=== PATIENT | male | born 2000 | race Caucasian/White ===

== ENCOUNTER 2023-08-17 09:09 | Emergency (ER) | payer OTHER, SELFPAY ==
--- NOTE | ~2023-08-17 | CT_ITS ---
EXAMINATION: CT HEAD WITHOUT CONTRAST CLINICAL INFORMATION: Right eye visual changes. COMPARISON: None available. TECHNIQUE: Contiguous axial imaging was performed from the skull base to vertex without intravenous administration of contrast. This CT examination was performed using dose optimization techniques as appropriate, variously including the following: *Automated exposure control *Adjustment of mA and/or kV according to patient size (this includes techniques or standardized protocols for targeted exams where dose is matched to indication/reason for exam; i.e. extremities or head) *Use of iterative reconstruction technique DLP: 680 mGy-cm FINDINGS: There is no acute intra-axial, extra-axial bleed, masses or midline shift. There is no acute infarction in evolution. There is no edema.. The lateral ventricles are symmetrical in size and configuration without enlargement. The locke to white matter differentiation is maintained normal. No abnormality seen in the posterior fossa. Bone windows reveal no calvarial abnormality. There is no scalp soft tissue abnormality. There is a large polyp or retention cyst left maxillary sinus. Otherwise rest of the paranasal sinuses and mastoid air cells are well-aerated. CT/CT head/brain wo IV con IMPRESSION: 1. No acute intracranial process seen. 2. Large polyp or retention cyst left maxillary sinus.
[2023-08-17 09:16] VITALS: BP 129/80; PULSE 66; RESP 19; TEMP 36.6; O2SAT 98; BMI 18.8
--- NOTE | 2023-08-17 09:43 | ED_ITS ---
HPI - Eye Problem General Chief complaint: Eye Problems Stated complaint: ? Retinal Detachment R Eye Time Seen by Provider: 08/17/23 09:22 Source: patient Mode of arrival: ambulatory Limitations: no limitations History of Present Illness HPI Narrative: This is a 22-year-old male without significant medical history presenting with atraumatic right-sided visual disturbance times a week. Patient reports this started last Wednesday after having a ?migraine ?, he reports he lost medial vision to his right eye and tells me he sees like a locke block in that region. He reports he gets migraines from time to time however has never had visual disturbances like this. At this time he tells me he does not have a headache, weakness, nausea, vomiting, chest pain, shortness of breath, fevers, chills, recent illness, neck pain, recent trauma to head or neck. Not on blood thinners NIH stroke scale 0 Related Data Allergies Allergy/AdvReac Type Severity Reaction Status Date / Time No Known Allergies Allergy Verified 08/17/23 09:15 Review of Systems 2 Review of Systems: Yes all other systems are reviewed and are negative [facility] Past Medical History Attestation statement: The following information was validated with the patient. Source: old records reviewed and nursing notes reviewed Social History Social History Advance Directives: No Physical Exam 2 Vital Signs: Vital Signs: Last Vital Signs Temp 98 F 08/17/23 09:16 Pulse 66 08/17/23 09:16 Resp 19 08/17/23 09:16 BP 129/80 08/17/23 09:16 Pulse Ox 98 08/17/23 09:16 O2 Del Method Room Air 08/17/23 09:16 BMI result Body Mass Index 18.8 vss Appearance: Alert.? Oriented X3.? No acute distress.? Head: Normocephalic, atraumatic, no step-offs or deformities Eyes: Pupils equal, round and reactive to light.? Extraocular movements intact and pain-free. - Bedside ultrasound of right eye: no vi sualized vitreous hemorrhage or retinal detachment. - visual martinez: loss of vision to the r ight eye nasal aspect. Normal L eye. Normal right temporal vision. - visual acuity: L: 20/13, R: 20/30 Neck: Normal inspection.? Neck supple.? CVS: Normal heart rate and rhythm.? Pulses normal.? Respiratory: No respiratory distress.? Breath sounds normal.? Abdomen: Soft and nontender.? Skin: Skin warm and dry.? Normal skin color.? Normal skin turgor.? Extremities: No lower extremity edema.? No calf ttp. 5/5 strength to bilateral upper and lower extremities Neuro: Oriented X 3.? No motor deficit.? No sensory deficit. CN 2-12 intact Course Course Course Narrative: Discussed this case w/ my attending Dr. Phillip who recommends just dry CT and no need for CTA head/ neck or MRI. Reevaluation(s) Reevaluation #1: A bedside I ultrasound was done normal cornea, ciliary body, lens, vitreous chamber, no signs of retinal detachment or vitreous hemorrhage. Image below. Time: 10:30 Reevaluation #2: Visual acuity: L 20/13 R 20/30 Ct unremarkable. Call out to Dr. Sauceda opthamology. Time: 11:25 Reevaluation #3: Visual martinez by confrontation again repeated and unchanged. Head CT unremarkable. I did discuss this case with Ophthalmology who will see patient tomorrow at 09:20 in the morning or 10:00. Patient agrees to this plan. Educated patient on diagnosis and treatment plan, answered all question, patient verbalizes understanding. At this time patient will be discharged home, advised to return with new or worsening symptoms. Educated on worrisome signs and symptoms and when to return. At this time I feel comfortable discharge home. Time: 11:45 Medical Decision Making Medical Decision Making MDM Narrative: 22-year-old male presents with visual disturbances to the right eye since Wednesday. Unchanged and not improving Physical exam significant for Pupils equal, round and reactive to light.? Extraocular movements intact and pain-free. - Bedside ultrasound of right eye: no visualized vitreous hemorrhage or retinal detachment. - visual martinez: loss of vision to the right eye nasal aspect. Normal L eye. Normal right temporal vision. History and physical exam concerning for ocular migraine causing unilateral nasal hemianopia. I do not suspect stroke, posterior stroke, intracranial hemorrhage. Unilateral nasal hemianopia which could result from 1/2 of the optic nerve of the eye being compromised although history and physical exam with very low suspicious of this plan- visual acuity, head CT Differential Diagnosis Differential Diagnoses: The differential diagnosis associated with the presentation includes History and physical exam concerning for ocular migraine causing unilateral nasal hemianopia. I do not suspect stroke, posterior stroke, intracranial hemorrhage. Unilateral nasal hemianopia which could result from 1/2 of the optic nerve of the eye being compromised although history and physical exam with very low suspicious of this Admission/Observation Consideration of admission/observation: Escalation of care including admission/observation considered Critical Care Time Critical Care Time Critical Care Time: Yes Total Critical Care Time: 45 Attestation: I attest to this time spent taking care of the patient, obtaining history, physical, reviewing labs, imaging, speaking to my attending, speaking to specialist. Discharge Plan Discharge Clinical Impression: Visual loss, right eye Patient Disposition: Home, Self-Care Additional Instructions: Take your medications as prescribed. If you were prescribed antibiotics today, it is important that you take your medication to their entirety, do not skip any doses, do not finish them early. Follow-up with your primary care provider this week. Return to the emergency department with new or worsening symptoms. Such as fevers, chills, chest pain, shortness of breath, nausea, vomiting, dizziness, headache, vision changes, lethargy In case of emergency call 911 Referrals: Rivera Rose [Physician] - 1 day Nain Dunbar MD [Primary Care Provider] - 3 days Stand Alone Forms: Work/School Release
== END 2023-08-17 11:55 | disposition home or self-care (01) ==
PROVIDERS: Emergency Provider Emergency Medicine; PCP Family Medicine
DX: H54.61 Unqualified visual loss, right eye, normal vision left eye (principal); R51.9 Headache, unspecified
CPT/HCPCS: 70450; 99282; 99284

== ENCOUNTER 2023-10-25 09:37 | Outpatient (REF) | payer OTHER, SELFPAY ==
--- NOTE | ~2023-10-25 | MR_ITS ---
EXAMINATION: MR BRAIN WITHOUT AND WITH CONTRAST CLINICAL INFORMATION: Visual field loss COMPARISON: CT scan of brain on 08/17/2023 TECHNIQUE: Multiplanar, multisequence MRI of the brain was obtained before and after the intravenous administration of 6.5 mL Gadavist. FINDINGS: Ventricles, sulci and cisterns are normal. No focal cerebral, brainstem or cerebellar lesions with abnormal signal can be seen. Diffusion weighted images show no abnormal regional decrease in diffusion. Post contrast images show no enhancing cerebral, brainstem or cerebellar lesions. No abnormal meningeal enhancement is seen. The pituitary gland is normal. Optic chiasm is not displaced. Cerebellar tonsils position is normal. Persistent left maxillary sinus floor polypoid mucosal lesion is seen measuring 2.5 x 2.0 cm in size, similar to CT scan appearance. Within the limitation of whole brain evaluation, bilateral eyeballs are intact, with normal signal and symmetrical. Bilateral optic nerve/ophthalmic complexes are also symmetrical with normal signal. No enhancing intraorbital mass lesion or extrinsic compression of the eyeball or optic nerve could be seen. MR/MR head/brain wo/w con IMPRESSION: 1. Normal MRI scan of the brain. 2. No acute cerebral infarction is seen. 3. No evidence of space occupying or enhancing intracranial mass lesion could be found. 4. No evidence of intracranial hemorrhage. 5. Persistent left maxillary sinus floor mucosal polyp or mucus retention cyst is seen.
[2023-10-25] MEDS: gadobutroL 7.5 ML VIAL IVPUSH (10:37)
== END 2023-10-25 09:38 | disposition home or self-care (01) ==
LOC: HO.MRI 09:37
PROVIDERS: PCP Family Medicine; Visit Provider Ophthalmology
DX: H53.9 Unspecified visual disturbance (principal)
CPT/HCPCS: 70553; A9585